=== PATIENT | male | born 1980 | race Caucasian/White ===

== ENCOUNTER 2018-10-10 11:13 | Inpatient (IN) | payer MEDICARE ==
[~2018-10-10] VITALS: Ht 154.9 cm; Wt 132.9 kg
[2018-10-10] MEDS ORDERED: RISP3 PO (11:23)
[2018-10-10] MEDS ORDERED: FLUO-191 PO (11:23)
[2018-10-10] MEDS ORDERED: HALO5TAB2 PO (11:23)
[2018-10-10] MEDS ORDERED: LITH300C3 PO ×2 (11:23)
[2018-10-10] MEDS ORDERED: ATOR20TA86 PO (11:23)
[2018-10-10 12:00] LABS: BASOPHILS % (AUTO) 1.2 % (0.0-2.0); EOSINOPHILS % (AUTO) 0.9 % (1.0-6.0); HEMATOCRIT 38.9 % (41-53); HEMOGLOBIN 12.9 g/dL (13.5-17.5); LYMPHOCYTES % (AUTO) 17.4 % (22.0-44.0); MEAN CORPUSCULAR HEMOGLOBIN 28.4 pg (26.0-34.0); MEAN CORPUSCULAR VOLUME 86 fL (80-100); MONOCYTES # (AUTO) 0.6 K/uL (0.1-1.0); MONOCYTES % (AUTO) 5.7 % (2.0-9.0); NEUTROPHILS # (AUTO) 8.4 K/uL (1.8-7.7); NEUTROPHILS % (AUTO) 74.8 % (40.0-70.0); PLATELET COUNT (AUTO) 231 K/uL (150-450); RED BLOOD CELL COUNT(AUTO) 4.52 MIL/uL (4.50-5.90); RED CELL DISTRIBUTION WIDTH 15.6 % (11.5-14.5)
[2018-10-10 12:12] LABS: ANION GAP 9 mmol/L (8-16); CARBON DIOXIDE 28 mmol/L (22-29); CHLORIDE 106 mmol/L (98-107); CREATININE 0.96 mg/dL (0.60-1.30); GLOMERULAR FILTR. RATE CALC > 60 mL/min (>60); GLUCOSE,RANDOM 82 mg/dL (70-110); POTASSIUM 3.9 mmol/L (3.5-5.1); SODIUM SERUM 143 mmol/L (136-145); UREA NITROGEN, BLOOD 10 mg/dL (7-18)
[2018-10-10 12:20] LABS: ALANINE AMINOTRANSFERASE 49 U/L (12-78); ALBUMIN 3.1 g/dL (3.4-5.0); ALKALINE PHOSPHATASE 53 U/L (46-116); ASPARTATE AMINOTRANSFERASE 28 U/L (15-37); BILIRUBIN,TOTAL 0.5 mg/dL (0.1-1.0); TOTAL PROTEIN, SERUM 7.4 g/dL (6.4-8.2)
[2018-10-10 15:19] LABS: AMPHET/METH SCREEN,URINE NEGATIVE (NEGATIVE); BARBITURATE SCREEN, URINE NEGATIVE (NEGATIVE); BENZODIAZEPINES SCREEN,URINE NEGATIVE (NEGATIVE); CANNABINOID SCREEN,URINE NEGATIVE (NEGATIVE); COCAINE SCREEN,URINE NEGATIVE (NEGATIVE); METHADONE SCREEN, URINE NEGATIVE (NEGATIVE); OPIATE SCREEN,URINE NEGATIVE (NEGATIVE)
[2018-10-10 15:20] LABS: PHENCYCLIDINE SCREEN,URINE NEGATIVE (NEGATIVE)
[2018-10-10 15:59] LABS: LITHIUM 0.48 mmol/L (0.60-1.20)
[2018-10-10] MEDS ORDERED: LORazepam 2 MG TABLET PO ONE (16:15)
[2018-10-10] MEDS ORDERED: HALOPERIDOL 5 MG TABLET PO ONE (16:15)
[2018-10-10 18:55] VITALS: BP 116/77
[2018-10-10 19:01] LABS: CHOL/HDL RATIO 4.2 (4.2-7.3); CHOLESTEROL 180 mg/dL (131-200); HDL CHOLESTEROL 43 mg/dL (40-60); LDL CHOL (CALC.) 122 mg/dL (0-130); TRIGLYCERIDES 77 mg/dL (15-150)
[2018-10-10 19:19] VITALS: BP 116/77
[2018-10-10] MEDS ORDERED: GuaiFENesin/D-METHORPHAN [SUGAR-FREE] 200-20MG/10 ML SYRUP UDCUP PO PRN (20:45)
[2018-10-10] MEDS ORDERED: ALBUTEROL SULFATE HFA 90 MCG/PUFF 8 GM INHALER IH PRN (20:45)
[2018-10-10] MEDS ORDERED: MAG HYDROX/AL HYDROX/SIMETH ES 30 ML SUSPENSION UDCUP PO PRN (20:45)
[2018-10-10] MEDS ORDERED: NICOTINE 14 MG/24 HOUR PATCH TD PRN (20:45)
[2018-10-10] MEDS ORDERED: CloNIDine HCL 0.1 MG TABLET PO PRN (20:45)
[2018-10-10] MEDS ORDERED: ONDANSETRON HCL 4 MG TABLET PO PRN (20:45)
[2018-10-10] MEDS ORDERED: ACETAMINOPHEN 325 MG TABLET PO PRN (20:45)
[2018-10-10] MEDS ORDERED: IBUPROFEN 400 MG TABLET PO PRN (20:45)
[2018-10-10] MEDS ORDERED: MAGNESIUM HYDROXIDE SUSPENSION 30 ML UDCUP PO PRN (20:45)
[2018-10-10] MEDS ORDERED: LOPERAMIDE HCL 2 MG CAPSULE PO PRN (20:45)
[2018-10-10] MEDS ORDERED: DOCUSATE SODIUM 100 MG CAPSULE PO PRN (20:45)
[2018-10-10] MEDS ORDERED: PETROLATUM,WHITE 71 GM JELLY TP PRN (20:45)
[2018-10-10] MEDS: ATORVASTATIN CALCIUM 20 MG TABLET PO SCH (21:13)
[2018-10-11 00:28] VITALS: BP 121/64
[2018-10-11 07:57] LABS: BASOPHILS % (AUTO) 1.1 % (0.0-2.0); EOSINOPHILS % (AUTO) 3.2 % (1.0-6.0); HEMATOCRIT 39.5 % (41-53); HEMOGLOBIN 13.2 g/dL (13.5-17.5); LYMPHOCYTES % (AUTO) 20.2 % (22.0-44.0); MEAN CORPUSCULAR HEMOGLOBIN 28.6 pg (26.0-34.0); MEAN CORPUSCULAR HGB CONC 33.3 G/dL (31.0-37.0); MEAN CORPUSCULAR VOLUME 86 fL (80-100); MONOCYTES # (AUTO) 0.6 K/uL (0.1-1.0); MONOCYTES % (AUTO) 6.1 % (2.0-9.0); NEUTROPHILS % (AUTO) 69.4 % (40.0-70.0); PLATELET COUNT (AUTO) 225 K/uL (150-450); RED BLOOD CELL COUNT(AUTO) 4.61 MIL/uL (4.50-5.90); RED CELL DISTRIBUTION WIDTH 14.9 % (11.5-14.5)
[2018-10-11 08:37] VITALS: BP 132/73
[2018-10-11 08:54] LABS: ALKALINE PHOSPHATASE 51 U/L (46-116); ANION GAP 8 mmol/L (8-16); BILIRUBIN,TOTAL 0.6 mg/dL (0.1-1.0); CHLORIDE 105 mmol/L (98-107); POTASSIUM 4.3 mmol/L (3.5-5.1); SODIUM SERUM 141 mmol/L (136-145); UREA NITROGEN, BLOOD 11 mg/dL (7-18)
[2018-10-11 09:25] LABS: ALANINE AMINOTRANSFERASE 41 U/L (12-78); ALBUMIN 3.1 g/dL (3.4-5.0); ASPARTATE AMINOTRANSFERASE 19 U/L (15-37); CALCIUM, TOTAL 8.7 mg/dL (8.8-10.5); CARBON DIOXIDE 28 mmol/L (22-29); CHOL/HDL RATIO 4.2 (4.2-7.3); CHOLESTEROL 165 mg/dL (131-200); CREATININE 0.81 mg/dL (0.60-1.30); FREE T4 (FREE THYROXINE) 1.07 ng/dL (0.76-1.46); GLOMERULAR FILTR. RATE CALC > 60 mL/min (>60); GLUCOSE,RANDOM 73 mg/dL (70-110); HDL CHOLESTEROL 39 mg/dL (40-60); LDL CHOL (CALC.) 109 mg/dL (0-130); THYROID STIMULATING HORMONE 1.96 uIU/mL (0.36-3.74); TOTAL PROTEIN, SERUM 6.4 g/dL (6.4-8.2); TRIGLYCERIDES 85 mg/dL (15-150)
[2018-10-11 09:32] LABS: HEMOGLOBIN A1C 5.4 % (4.5-6.2)
[2018-10-11] MEDS: NICOTINE 14 MG/24 HOUR PATCH TD SCH (10:09)
[2018-10-11] MEDS: LORazepam 2 MG TABLET PO PRN ×2 (11:57→16:46)
[2018-10-11] MEDS: RisperiDONE 1 MG TABLET PO SCH ×2 (12:45→16:56)
[2018-10-11 16:06] VITALS: BP 119/74
[2018-10-11] MEDS: LITHIUM CARBONATE 300 MG TABLET PO SCH (16:56)
[2018-10-11 20:20] VITALS: BP 130/72
[2018-10-11] MEDS: ATORVASTATIN CALCIUM 20 MG TABLET PO SCH (20:21)
[2018-10-11] MEDS: PRAZOSIN HCL 1 MG CAPSULE PO SCH (20:22)
[2018-10-12 01:09] VITALS: BP 120/88
[2018-10-12] MEDS: LITHIUM CARBONATE 300 MG CAPSULE PO SCH (06:36)
[2018-10-12 08:07] VITALS: BP 119/75
[2018-10-12] MEDS: FLUoxetine HCL 20 MG CAPSULE PO SCH (08:32)
[2018-10-12] MEDS: RisperiDONE 1 MG TABLET PO SCH ×2 (08:32→17:15)
[2018-10-12] MEDS: NICOTINE 14 MG/24 HOUR PATCH TD SCH (08:33)
[2018-10-12] MEDS: LORazepam 2 MG TABLET PO PRN ×2 (10:43→16:06)
[2018-10-12 16:13] VITALS: BP 119/76
[2018-10-12] MEDS: LITHIUM CARBONATE 300 MG TABLET PO SCH (17:15)
[2018-10-12 20:10] VITALS: BP 122/62
[2018-10-12] MEDS: PRAZOSIN HCL 1 MG CAPSULE PO SCH (20:12)
[2018-10-12] MEDS: ATORVASTATIN CALCIUM 20 MG TABLET PO SCH (20:12)
[2018-10-13 01:57] VITALS: BP 118/78
[2018-10-13] MEDS: LITHIUM CARBONATE 300 MG CAPSULE PO SCH (06:18)
[2018-10-13 08:14] VITALS: BP 111/62
[2018-10-13] MEDS: FLUoxetine HCL 20 MG CAPSULE PO SCH (08:33)
[2018-10-13] MEDS: NICOTINE 14 MG/24 HOUR PATCH TD SCH (08:33)
[2018-10-13] MEDS: RisperiDONE 1 MG TABLET PO SCH ×2 (08:33→16:13)
[2018-10-13] MEDS: LORazepam 2 MG TABLET PO PRN ×2 (09:26→16:49)
[2018-10-13 16:11] VITALS: BP 128/80
[2018-10-13] MEDS: LITHIUM CARBONATE 300 MG TABLET PO SCH (16:13)
[2018-10-13] MEDS: ATORVASTATIN CALCIUM 20 MG TABLET PO SCH (21:39)
[2018-10-13] MEDS: PRAZOSIN HCL 1 MG CAPSULE PO SCH (21:43)
[2018-10-14 04:29] VITALS: BP 117/78
[2018-10-14] MEDS: LITHIUM CARBONATE 300 MG CAPSULE PO SCH (06:57)
[2018-10-14 08:19] VITALS: BP 114/64
[2018-10-14] MEDS: RisperiDONE 1 MG TABLET PO SCH ×2 (08:44→16:20)
[2018-10-14] MEDS: FLUoxetine HCL 20 MG CAPSULE PO SCH (08:44)
[2018-10-14] MEDS: NICOTINE 14 MG/24 HOUR PATCH TD SCH (08:45)
[2018-10-14] MEDS: HALOPERIDOL 5 MG TABLET PO PRN (11:26)
[2018-10-14] MEDS: LORazepam 2 MG TABLET PO PRN (11:26)
[2018-10-14 16:04] VITALS: BP 119/60
[2018-10-14] MEDS: LITHIUM CARBONATE 300 MG TABLET PO SCH (16:19)
[2018-10-14] MEDS: ATORVASTATIN CALCIUM 20 MG TABLET PO SCH (20:18)
[2018-10-14] MEDS: PRAZOSIN HCL 1 MG CAPSULE PO SCH (20:18)
[2018-10-15 00:05] VITALS: BP 108/76
[2018-10-15] MEDS: LITHIUM CARBONATE 300 MG CAPSULE PO SCH (06:26)
[2018-10-15] MEDS: RisperiDONE 1 MG TABLET PO SCH ×2 (08:11→16:14)
[2018-10-15] MEDS: FLUoxetine HCL 20 MG CAPSULE PO SCH (08:11)
[2018-10-15] MEDS: NICOTINE 14 MG/24 HOUR PATCH TD SCH (08:12)
[2018-10-15] MEDS: LORazepam 2 MG TABLET PO PRN ×2 (08:13→17:14)
[2018-10-15 08:37] VITALS: BP 117/78
[2018-10-15] MEDS ORDERED: NICOTINE 21 MG/24 HOUR PATCH TD SCH (09:45)
[2018-10-15 16:09] VITALS: BP 121/79
[2018-10-15] MEDS: LITHIUM CARBONATE 300 MG TABLET PO SCH (16:14)
[2018-10-15] MEDS: ATORVASTATIN CALCIUM 20 MG TABLET PO SCH (20:16)
[2018-10-15] MEDS: PRAZOSIN HCL 1 MG CAPSULE PO SCH (20:16)
[2018-10-15 21:00] VITALS: BP 128/81
[2018-10-16 05:53] VITALS: BP 108/64
[2018-10-16] MEDS: LITHIUM CARBONATE 300 MG CAPSULE PO SCH (06:35)
[2018-10-16] MEDS: FLUoxetine HCL 20 MG CAPSULE PO SCH (08:13)
[2018-10-16] MEDS: RisperiDONE 1 MG TABLET PO SCH ×2 (08:13→16:11)
[2018-10-16] MEDS: NICOTINE 14 MG/24 HOUR PATCH TD SCH (08:14)
[2018-10-16 08:25] VITALS: BP 129/85
[2018-10-16] MEDS: LORazepam 2 MG TABLET PO PRN ×2 (09:39→14:52)
[2018-10-16] MEDS: HALOPERIDOL 5 MG TABLET PO PRN (10:43)
[2018-10-16] MEDS: LITHIUM CARBONATE 300 MG TABLET PO SCH (16:11)
[2018-10-16 16:12] VITALS: BP 111/79
[2018-10-16 19:47] VITALS: BP 116/76
[2018-10-16] MEDS: ATORVASTATIN CALCIUM 20 MG TABLET PO SCH (20:04)
[2018-10-16] MEDS: PRAZOSIN HCL 1 MG CAPSULE PO SCH (20:08)
[2018-10-17 00:57] VITALS: BP 116/71
[2018-10-17] MEDS: LITHIUM CARBONATE 300 MG CAPSULE PO SCH (06:44)
[2018-10-17 07:50] VITALS: BP 114/66
[2018-10-17] MEDS: RisperiDONE 1 MG TABLET PO SCH ×2 (08:06→17:05)
[2018-10-17] MEDS: FLUoxetine HCL 20 MG CAPSULE PO SCH (08:06)
[2018-10-17] MEDS: NICOTINE 14 MG/24 HOUR PATCH TD SCH (08:06)
[2018-10-17] MEDS: LORazepam 2 MG TABLET PO PRN ×2 (08:25→13:44)
[2018-10-17 09:08] VITALS: BP 114/66
[2018-10-17] MEDS: HALOPERIDOL 5 MG TABLET PO PRN (11:14)
[2018-10-17] MEDS ORDERED: PALIPERIDONE PALMITATE 234 MG/1.5 ML SYRINGE IM ONE (11:45)
[2018-10-17] MEDS ORDERED: RISP2 PO (11:54)
[2018-10-17] MEDS ORDERED: LITH300T PO (11:54)
[2018-10-17 16:08] VITALS: BP 114/79
[2018-10-17] MEDS: LITHIUM CARBONATE 300 MG TABLET PO SCH (17:06)
[2018-10-17 20:31] VITALS: BP 115/73
[2018-10-17] MEDS: ZOLPIDEM TARTRATE 10 MG TABLET PO PRN (20:31)
[2018-10-17] MEDS: ATORVASTATIN CALCIUM 20 MG TABLET PO SCH (20:31)
[2018-10-17] MEDS: PRAZOSIN HCL 1 MG CAPSULE PO SCH (20:31)
[2018-10-18 01:58] VITALS: BP 108/63
[2018-10-18] MEDS: LITHIUM CARBONATE 300 MG CAPSULE PO SCH (06:48)
[2018-10-18] MEDS: NICOTINE 14 MG/24 HOUR PATCH TD SCH (08:06)
[2018-10-18] MEDS: RisperiDONE 1 MG TABLET PO SCH ×2 (08:06→16:35)
[2018-10-18] MEDS: FLUoxetine HCL 20 MG CAPSULE PO SCH (08:06)
[2018-10-18] MEDS: LORazepam 2 MG TABLET PO PRN ×2 (08:06→13:30)
[2018-10-18 08:13] VITALS: BP 128/82
[2018-10-18 16:13] VITALS: BP 118/64
[2018-10-18] MEDS: LITHIUM CARBONATE 300 MG TABLET PO SCH (16:36)
[2018-10-18] MEDS: PRAZOSIN HCL 1 MG CAPSULE PO SCH (20:31)
[2018-10-18] MEDS: ATORVASTATIN CALCIUM 20 MG TABLET PO SCH (20:31)
[2018-10-18 20:32] VITALS: BP 116/77
[2018-10-18] MEDS: ZOLPIDEM TARTRATE 10 MG TABLET PO PRN (20:56)
[2018-10-19 05:26] VITALS: BP 110/78
[2018-10-19] MEDS: LITHIUM CARBONATE 300 MG CAPSULE PO SCH (07:07)
[2018-10-19 08:21] VITALS: BP 109/74
[2018-10-19] MEDS: FLUoxetine HCL 20 MG CAPSULE PO SCH (08:26)
[2018-10-19] MEDS: NICOTINE 14 MG/24 HOUR PATCH TD SCH (08:26)
[2018-10-19] MEDS: RisperiDONE 1 MG TABLET PO SCH ×2 (08:26→16:30)
[2018-10-19] MEDS: LORazepam 2 MG TABLET PO PRN ×3 (08:27→19:22)
[2018-10-19] MEDS: HALOPERIDOL 5 MG TABLET PO PRN (10:04)
[2018-10-19 16:09] VITALS: BP 121/82
[2018-10-19] MEDS: LITHIUM CARBONATE 300 MG TABLET PO SCH (16:30)
[2018-10-19 20:27] VITALS: BP 111/75
[2018-10-19] MEDS: PRAZOSIN HCL 1 MG CAPSULE PO SCH (20:28)
[2018-10-19] MEDS: ATORVASTATIN CALCIUM 20 MG TABLET PO SCH (20:28)
[2018-10-19] MEDS: ZOLPIDEM TARTRATE 10 MG TABLET PO PRN (21:14)
[2018-10-20 05:43] VITALS: BP 114/70
[2018-10-20] MEDS: LITHIUM CARBONATE 300 MG CAPSULE PO SCH (06:19)
[2018-10-20 08:13] VITALS: BP 149/81
[2018-10-20] MEDS: FLUoxetine HCL 20 MG CAPSULE PO SCH (09:03)
[2018-10-20] MEDS: RisperiDONE 1 MG TABLET PO SCH ×2 (09:03→16:06)
[2018-10-20] MEDS: NICOTINE 14 MG/24 HOUR PATCH TD SCH (09:04)
[2018-10-20] MEDS: LORazepam 2 MG TABLET PO PRN ×2 (09:04→14:59)
[2018-10-20] MEDS: HALOPERIDOL 5 MG TABLET PO PRN (12:44)
[2018-10-20 16:02] VITALS: BP 114/80
[2018-10-20] MEDS: LITHIUM CARBONATE 300 MG TABLET PO SCH (16:07)
[2018-10-20] MEDS: PRAZOSIN HCL 1 MG CAPSULE PO SCH (20:25)
[2018-10-20] MEDS: ZOLPIDEM TARTRATE 10 MG TABLET PO PRN (20:25)
[2018-10-20] MEDS: ATORVASTATIN CALCIUM 20 MG TABLET PO SCH (20:25)
[2018-10-21 01:01] VITALS: BP 116/66
[2018-10-21] MEDS: LITHIUM CARBONATE 300 MG CAPSULE PO SCH (06:46)
[2018-10-21 07:36] VITALS: BP 108/72
[2018-10-21] MEDS: FLUoxetine HCL 20 MG CAPSULE PO SCH (08:05)
[2018-10-21] MEDS: RisperiDONE 1 MG TABLET PO SCH ×2 (08:05→16:29)
[2018-10-21] MEDS: NICOTINE 14 MG/24 HOUR PATCH TD SCH (08:05)
[2018-10-21] MEDS: LORazepam 2 MG TABLET PO PRN ×3 (08:05→17:33)
[2018-10-21] MEDS ORDERED: PALIPERIDONE PALMITATE 156 MG/ML SYRINGE IM ONE (09:00)
[2018-10-21 09:06] VITALS: BP 108/72
[2018-10-21] MEDS: HALOPERIDOL 5 MG TABLET PO PRN (14:07)
[2018-10-21 16:02] VITALS: BP 118/90
[2018-10-21] MEDS: LITHIUM CARBONATE 300 MG TABLET PO SCH (16:30)
[2018-10-21 20:20] VITALS: BP 110/68
[2018-10-21] MEDS: ATORVASTATIN CALCIUM 20 MG TABLET PO SCH (20:36)
[2018-10-21] MEDS: PRAZOSIN HCL 1 MG CAPSULE PO SCH (20:36)
[2018-10-21] MEDS: ZOLPIDEM TARTRATE 10 MG TABLET PO PRN (21:04)
[2018-10-22 01:27] VITALS: BP 117/76
[2018-10-22] MEDS: LITHIUM CARBONATE 300 MG CAPSULE PO SCH (06:40)
[2018-10-22 08:01] VITALS: BP 117/78
[2018-10-22] MEDS: RisperiDONE 1 MG TABLET PO SCH ×2 (08:10→16:45)
[2018-10-22] MEDS: LORazepam 2 MG TABLET PO PRN ×2 (08:10→12:26)
[2018-10-22] MEDS: NICOTINE 14 MG/24 HOUR PATCH TD SCH (08:10)
[2018-10-22] MEDS: FLUoxetine HCL 20 MG CAPSULE PO SCH (08:10)
[2018-10-22] MEDS: HALOPERIDOL 5 MG TABLET PO PRN (09:27)
[2018-10-22 16:18] VITALS: BP 110/60
[2018-10-22] MEDS: LITHIUM CARBONATE 300 MG TABLET PO SCH (16:46)
[2018-10-22] MEDS: QUEtiapine FUMARATE 200 MG TABLET PO SCH (21:05)
[2018-10-22] MEDS: ATORVASTATIN CALCIUM 20 MG TABLET PO SCH (21:05)
[2018-10-22] MEDS: PRAZOSIN HCL 1 MG CAPSULE PO SCH (21:05)
[2018-10-23 01:00] VITALS: BP 116/64
[2018-10-23] MEDS: LITHIUM CARBONATE 300 MG CAPSULE PO SCH (06:44)
[2018-10-23 08:02] VITALS: BP 114/65
[2018-10-23] MEDS: NICOTINE 14 MG/24 HOUR PATCH TD SCH (08:40)
[2018-10-23] MEDS: FLUoxetine HCL 20 MG CAPSULE PO SCH (08:40)
[2018-10-23] MEDS: RisperiDONE 1 MG TABLET PO SCH ×2 (08:40→16:33)
[2018-10-23] MEDS: LORazepam 2 MG TABLET PO PRN ×3 (08:41→17:48)
[2018-10-23 16:05] VITALS: BP 120/79
[2018-10-23] MEDS: LITHIUM CARBONATE 300 MG TABLET PO SCH (16:32)
[2018-10-23 20:32] VITALS: BP 118/65
[2018-10-23] MEDS: QUEtiapine FUMARATE 200 MG TABLET PO SCH (20:33)
[2018-10-23] MEDS: ATORVASTATIN CALCIUM 20 MG TABLET PO SCH (20:33)
[2018-10-23] MEDS: PRAZOSIN HCL 1 MG CAPSULE PO SCH (20:33)
[2018-10-24] MEDS: LITHIUM CARBONATE 300 MG CAPSULE PO SCH (06:30)
[2018-10-24 08:05] VITALS: BP 120/79
[2018-10-24] MEDS: RisperiDONE 1 MG TABLET PO SCH ×2 (08:49→16:31)
[2018-10-24] MEDS: FLUoxetine HCL 20 MG CAPSULE PO SCH (08:49)
[2018-10-24] MEDS: NICOTINE 14 MG/24 HOUR PATCH TD SCH (08:50)
[2018-10-24] MEDS: LORazepam 2 MG TABLET PO PRN ×2 (10:00→17:10)
[2018-10-24 16:15] VITALS: BP 117/92
[2018-10-24] MEDS: LITHIUM CARBONATE 300 MG TABLET PO SCH (16:32)
[2018-10-24 20:29] VITALS: BP 115/85
[2018-10-24] MEDS: QUEtiapine FUMARATE 200 MG TABLET PO SCH (20:34)
[2018-10-24] MEDS: ATORVASTATIN CALCIUM 20 MG TABLET PO SCH (20:34)
[2018-10-24] MEDS: PRAZOSIN HCL 1 MG CAPSULE PO SCH (20:34)
[2018-10-25 00:02] VITALS: BP 113/64
[2018-10-25] MEDS: LITHIUM CARBONATE 300 MG CAPSULE PO SCH (06:45)
[2018-10-25] MEDS: NICOTINE 14 MG/24 HOUR PATCH TD SCH (08:05)
[2018-10-25] MEDS: FLUoxetine HCL 20 MG CAPSULE PO SCH (08:05)
[2018-10-25] MEDS: RisperiDONE 1 MG TABLET PO SCH ×2 (08:05→17:02)
[2018-10-25 08:06] VITALS: BP 107/83
[2018-10-25] MEDS: LORazepam 2 MG TABLET PO PRN ×2 (09:43→15:24)
[2018-10-25 16:11] VITALS: BP 125/89
[2018-10-25] MEDS: LITHIUM CARBONATE 300 MG TABLET PO SCH (17:02)
[2018-10-25 20:35] VITALS: BP 118/72
[2018-10-25] MEDS: QUEtiapine FUMARATE 200 MG TABLET PO SCH (20:35)
[2018-10-25] MEDS: PRAZOSIN HCL 1 MG CAPSULE PO SCH (20:35)
[2018-10-25] MEDS: ATORVASTATIN CALCIUM 20 MG TABLET PO SCH (20:35)
[2018-10-26 02:00] VITALS: BP 117/74
[2018-10-26] MEDS: LITHIUM CARBONATE 300 MG CAPSULE PO SCH (06:33)
[2018-10-26] MEDS: FLUoxetine HCL 20 MG CAPSULE PO SCH (08:09)
[2018-10-26] MEDS: RisperiDONE 1 MG TABLET PO SCH ×2 (08:09→17:01)
[2018-10-26] MEDS: NICOTINE 14 MG/24 HOUR PATCH TD SCH (08:10)
[2018-10-26 08:18] VITALS: BP 118/65
[2018-10-26] MEDS: LORazepam 2 MG TABLET PO PRN ×2 (09:24→13:51)
[2018-10-26 16:13] VITALS: BP 119/90
[2018-10-26] MEDS: LITHIUM CARBONATE 300 MG TABLET PO SCH (17:01)
[2018-10-26 20:30] VITALS: BP 122/78
[2018-10-26] MEDS: PRAZOSIN HCL 1 MG CAPSULE PO SCH (20:31)
[2018-10-26] MEDS: QUEtiapine FUMARATE 200 MG TABLET PO SCH (20:31)
[2018-10-26] MEDS: ATORVASTATIN CALCIUM 20 MG TABLET PO SCH (20:31)
[2018-10-27 02:26] VITALS: BP 118/76
[2018-10-27] MEDS: LITHIUM CARBONATE 300 MG CAPSULE PO SCH (06:40)
[2018-10-27] MEDS: FLUoxetine HCL 20 MG CAPSULE PO SCH (08:01)
[2018-10-27] MEDS: RisperiDONE 1 MG TABLET PO SCH ×2 (08:01→16:53)
[2018-10-27] MEDS: NICOTINE 14 MG/24 HOUR PATCH TD SCH (08:01)
[2018-10-27 08:08] VITALS: BP 117/76
[2018-10-27] MEDS: LORazepam 2 MG TABLET PO PRN ×2 (08:50→14:32)
[2018-10-27 16:07] VITALS: BP 113/66
[2018-10-27] MEDS: LITHIUM CARBONATE 300 MG TABLET PO SCH (16:54)
[2018-10-27] MEDS: QUEtiapine FUMARATE 200 MG TABLET PO SCH (20:55)
[2018-10-27] MEDS: PRAZOSIN HCL 1 MG CAPSULE PO SCH (20:55)
[2018-10-27] MEDS: ATORVASTATIN CALCIUM 20 MG TABLET PO SCH (20:55)
[2018-10-28 04:00] VITALS: BP 118/72
[2018-10-28] MEDS: LITHIUM CARBONATE 300 MG CAPSULE PO SCH (06:36)
[2018-10-28 08:08] VITALS: BP 130/90
[2018-10-28] MEDS: FLUoxetine HCL 20 MG CAPSULE PO SCH (08:10)
[2018-10-28] MEDS: RisperiDONE 1 MG TABLET PO SCH ×2 (08:10→16:53)
[2018-10-28] MEDS: NICOTINE 14 MG/24 HOUR PATCH TD SCH (08:11)
[2018-10-28] MEDS: LORazepam 2 MG TABLET PO PRN ×2 (11:03→15:44)
[2018-10-28 16:05] VITALS: BP 115/63
[2018-10-28] MEDS: LITHIUM CARBONATE 300 MG TABLET PO SCH (16:53)
[2018-10-28 20:55] VITALS: BP 121/63
[2018-10-28] MEDS: PRAZOSIN HCL 1 MG CAPSULE PO SCH (20:55)
[2018-10-28] MEDS: ATORVASTATIN CALCIUM 20 MG TABLET PO SCH (20:55)
[2018-10-28] MEDS: QUEtiapine FUMARATE 200 MG TABLET PO SCH (20:55)
[2018-10-29 05:18] VITALS: BP 118/70
[2018-10-29] MEDS: LITHIUM CARBONATE 300 MG CAPSULE PO SCH (06:55)
[2018-10-29] MEDS: RisperiDONE 1 MG TABLET PO SCH ×2 (08:17→16:06)
[2018-10-29] MEDS: FLUoxetine HCL 20 MG CAPSULE PO SCH (08:18)
[2018-10-29] MEDS: NICOTINE 14 MG/24 HOUR PATCH TD SCH (08:18)
[2018-10-29] MEDS: LORazepam 2 MG TABLET PO PRN ×2 (08:46→13:09)
[2018-10-29 09:14] VITALS: BP 120/78
[2018-10-29] MEDS: LITHIUM CARBONATE 300 MG TABLET PO SCH (16:06)
[2018-10-29 16:10] VITALS: BP 119/78
[2018-10-29] MEDS: PRAZOSIN HCL 1 MG CAPSULE PO SCH (21:03)
[2018-10-29] MEDS: ATORVASTATIN CALCIUM 20 MG TABLET PO SCH (21:03)
[2018-10-29] MEDS: QUEtiapine FUMARATE 200 MG TABLET PO SCH (21:03)
[2018-10-30 01:01] VITALS: BP 108/67
[2018-10-30] MEDS: LITHIUM CARBONATE 300 MG CAPSULE PO SCH (06:14)
[2018-10-30] MEDS: RisperiDONE 1 MG TABLET PO SCH ×2 (08:08→16:04)
[2018-10-30] MEDS: FLUoxetine HCL 20 MG CAPSULE PO SCH (08:08)
[2018-10-30] MEDS: NICOTINE 14 MG/24 HOUR PATCH TD SCH (08:09)
[2018-10-30] MEDS: LORazepam 2 MG TABLET PO PRN (08:09)
[2018-10-30 08:16] VITALS: BP 118/78
[2018-10-30] MEDS ORDERED: ZOLPIDEM TARTRATE 10 MG TABLET PO PRN (13:00)
[2018-10-30] MEDS ORDERED: LORazepam 0.5 MG TABLET PO PRN (13:00)
[2018-10-30] MEDS ORDERED: LORazepam 2 MG TABLET PO PRN (13:30)
[2018-10-30 16:01] VITALS: BP 113/60
[2018-10-30] MEDS: LITHIUM CARBONATE 300 MG TABLET PO SCH (16:05)
[2018-10-30] MEDS: PRAZOSIN HCL 1 MG CAPSULE PO SCH (21:40)
[2018-10-30] MEDS: ATORVASTATIN CALCIUM 20 MG TABLET PO SCH (21:40)
[2018-10-30] MEDS: QUEtiapine FUMARATE 200 MG TABLET PO SCH (21:40)
[2018-10-30 21:49] VITALS: BP 126/76
[2018-10-31 00:15] VITALS: BP 111/61
[2018-10-31] MEDS ORDERED: QUET200T PO (03:58)
[2018-10-31] MEDS ORDERED: PRAZ1 PO (06:08)
[2018-10-31] MEDS: LITHIUM CARBONATE 300 MG CAPSULE PO SCH (06:43)
[2018-11-18] MEDS ORDERED: PALIPERIDONE PALMITATE 234 MG/1.5 ML SYRINGE IM SCH (09:00)
== END 2018-10-31 07:15 | disposition home or self-care (01) | DRG 885 ==
LOC: EMS 11:14 → B2X 17:25
DX: F25.9 Schizoaffective disorder, unspecified (principal); R45.851 Suicidal ideations; Z91.5 Personal history of self-harm; D64.9 Anemia, unspecified; D72.829 Elevated white blood cell count, unspecified; E78.00 Pure hypercholesterolemia, unspecified; E78.5 Hyperlipidemia, unspecified; F14.10 Cocaine abuse, uncomplicated; F17.200 Nicotine dependence, unspecified, uncomplicated; F32.9 Major depressive disorder, single episode, unspecified; G47.00 Insomnia, unspecified; F41.9 Anxiety disorder, unspecified; Z81.8 Family history of other mental and behavioral disorders; Z23 Encounter for immunization
CPT/HCPCS: 83036; 84439; 84443; 90686; G0480